=== PATIENT | female | born 1985 | race Caucasian/White ===

== ENCOUNTER 2017-07-31 16:55 | Emergency (ER) | payer BC ==
[~2017-07-31] VITALS: Ht 165.1 cm; Wt 74.8 kg
--- NOTE | 2017-07-31 17:11 | Emergency Room Report ---
History of Present Illness General Chief Complaint: Abdominal Pain Source: Patient Present Illness HPI 32-year-old female with no sig pmhx p/w epigastric abd pain for one hour. Patient states pain started suddenly as she was driving, localized to epigastric area, radiating towards back, burning in nature, intermittent. No relieving or exacerbating factors. Patient states that upon arrival to the emergency room it spontaneously improved without anything. Patient has never had this pain before Denies nvd. Denies fever, chills. No hx of abdominal surgeries. No hx of endoscopies/colonoscopies. Allergies: Coded Allergies: No Known Allergies (Unverified , 07/31/17) Patient History Past Medical History: see triage record Past Surgical History: none Pertinent Family History: none Now: No Reviewed Nursing Documentation: PMH: Agreed; PSxH: Agreed Nursing Documentation-PMH Past Medical History: No Stated History Review of Systems All Other Systems: negative except mentioned in HPI Physical Exam Vital Signs Date Time Temp Pulse Resp B/P (MAP) Pulse Ox O2 Delivery O2 Flow Rate FiO2 07/31/17 16:56 98.0 78 16 135/81 98 Room Air 98.1 Sp02 EP Interpretation: reviewed, normal General Appearance: alert, GCS 15, non-toxic, mild distress Head: normocephalic, atraumatic Eyes: bilateral eye normal inspection, bilateral eye PERRL, bilateral eye EOMI ENT: normal ENT inspection, normal pharynx, normal voice, moist mucus membranes Neck: normal inspection, full range of motion, supple Respiratory: normal inspection, lungs clear, normal breath sounds, no respiratory distress, no retraction, no wheezing, speaking full sentences, chest symmetrical Cardiovascular #1: normal inspection, regular rate, rhythm, normal capillary refill Cardiovascular #2: 2+ radial (R), 2+ radial (L) Gastrointestinal: soft, non-distended, no guarding, other - mild epigastric tenderness, murphys neg Genitourinary: no CVA tenderness Musculoskeletal: normal inspection, back normal, normal range of motion, non- tender Neurologic: normal inspection, alert, oriented x3, responsive, motor strength/ tone normal, sensory intact, normal gait, speech normal Psychiatric: normal inspection, judgement/insight normal, memory normal Skin: normal inspection, normal color, no rash, warm/dry, well hydrated, normal turgor Medical Decision Making Diagnostic Impression: Primary Impression: Abdominal pain Additional Impressions: Cholelithiasis Biliary colic ER Course 32-year-old female with epigastric abdominal pain which has gradually resolved upon coming to the emergency room Differential Diagnosis: Gastritis, gastroenteritis, pancreatitis, cholecystitis, appendicitis, UTI/pyelo Plan: Basic labs, ua IVF Ultrasound ER course: Patient has remained stable during ED stay. Pain improved. Repeat abdominal exam is nontender. Tolerating PO Patient has not required any pain medicine the emergency room, has been ambulatory Ultrasound showing multiple gallstones, no signs of cholecystitis labs are unremarkable Disposition: Patient is to be discharged to home. FU surgery outpatient Strict return precautions discussed with patient such as fever, chills, worsening/severe abdominal pain, nausea, vomiting, which may indicate severe illness. Patient verbalizes understanding and agrees with plan. Please note that this Emergency Department Report was dictated using [employer] machine operator technology software, occasionally this can lead to erroneous entry secondary to interpretation by the dictation equipment Laboratory Tests Test 07/31/17 17:10 White Blood Count 8.8 K/UL (4.8-10.8) Red Blood Count 3.79 M/UL (4.20-5.40) L Hemoglobin 12.0 G/DL (12.0-16.0) Hematocrit 35.8 % (37.0-47.0) L Mean Corpuscular Volume 95 FL (80-99) Mean Corpuscular Hemoglobin 31.7 PG (27.0-31.0) H Mean Corpuscular Hemoglobin Concent 33.6 G/DL (32.0-36.0) Red Cell Distribution Width 12.1 % (11.6-14.8) Platelet Count 257 K/UL (150-450) Mean Platelet Volume 7.6 FL (6.5-10.1) Neutrophils (%) (Auto) 68.5 % (45.0-75.0) Lymphocytes (%) (Auto) 22.2 % (20.0-45.0) Monocytes (%) (Auto) 7.3 % (1.0-10.0) Eosinophils (%) (Auto) 1.3 % (0.0-3.0) Basophils (%) (Auto) 0.8 % (0.0-2.0) Urine Color Yellow Urine Appearance Clear Urine pH 6 (4.5-8.0) Urine Specific [place] 1.025 (1.005-1.035) Urine Protein 1+ (NEGATIVE) H Urine Glucose (UA) Negative (NEGATIVE) Urine Ketones 2+ (NEGATIVE) H Urine Occult Blood Negative (NEGATIVE) Urine Nitrite Negative (NEGATIVE) Urine Bilirubin Negative (NEGATIVE) Urine Urobilinogen 1 MG/DL (0.0-1.0) H Urine Leukocyte Esterase 3+ (NEGATIVE) H Urine RBC 2-4 /HPF (0 - 2) H Urine WBC 5-10 /HPF (0 - 2) H Urine Squamous Epithelial Cells Few /LPF (NONE/OCC) Urine Amorphous Sediment Few /LPF (NONE) H Urine Bacteria Few /HPF (NONE) Urine HCG, Qualitative Negative (NEGATIVE) Sodium Level 140 MMOL/L (136-145) Potassium Level 3.6 MMOL/L (3.5-5.1) Chloride Level 103 MMOL/L (98-107) Carbon Dioxide Level 27 MMOL/L (21-32) Anion Gap 10 mmol/L (5-15) Blood Urea Nitrogen 19 mg/dL (7-18) H Creatinine 0.7 MG/DL (0.55-1.30) Estimate Glomerular Filtration Rate > 60 mL/min (>60) Glucose Level 101 MG/DL (74-106) Calcium Level 9.5 MG/DL (8.5-10.1) Total Bilirubin 0.6 MG/DL (0.2-1.0) Aspartate Amino Transferase (AST) 126 U/L (15-37) H Alanine Aminotransferase (ALT) 77 U/L (12-78) Alkaline Phosphatase 141 U/L (46-116) H Total Protein 8.2 G/DL (6.4-8.2) Albumin 4.4 G/DL (3.4-5.0) Globulin 3.8 g/dL Albumin/Globulin Ratio 1.2 (1.0-2.7) Lipase 119 U/L (73-393) CT/MRI/US Diagnostic Results CT/MRI/US Diagnostic Results : Imaging Test Ordered: US abdominal Impression per tech, gallstones, no wall thickening, no pericholecystic fluid, murphys sign neg Last Vital Signs Date Time Temp Pulse Resp B/P (MAP) Pulse Ox O2 Delivery O2 Flow Rate FiO2 07/31/17 16:57 97.9 79 20 135/81 99 Room Air 97.9 Disposition: HOME, SELF-CARE Condition: Improved Mathew Burk M.D. Jul 31, 2017 17:11
[2017-07-31 17:28] LABS: APPEARANCE,URINE CLEAR; BILIRUBIN, URINE NEGATIVE (NEGATIVE); GLUCOSE, URINE (UA) NEGATIVE (NEGATIVE); KETONES,URINE 2+ (NEGATIVE); LEUKOCYTE ESTERASE ,URINE 3+ (NEGATIVE); NITRITE,URINE NEGATIVE (NEGATIVE); PH,URINE 6 (4.5-8.0); PROTEIN,URINE 1+ (NEGATIVE); UROBILINOGEN,URINE 1 MG/DL (0.0-1.0)
[2017-07-31 17:31] LABS: COLOR,URINE YELLOW
[2017-07-31 17:34] LABS: ANION GAP 10 mmol/L (5-15); BASOPHILS % (AUTO) 0.8 % (0.0-2.0); BLOOD UREA NITROGEN 19 mg/dL (7-18); CALCIUM 9.5 MG/DL (8.5-10.1); CARBON DIOXIDE 27 MMOL/L (21-32); CHLORIDE 103 MMOL/L (98-107); CREATININE 0.7 MG/DL (0.55-1.30); EOSINOPHILS % (AUTO) 1.3 % (0.0-3.0); HEMATOCRIT 35.8 % (37.0-47.0); LYMPHOCYTES % (AUTO) 22.2 % (20.0-45.0); MEAN CORPUSCULAR VOLUME 95 FL (80-99); MONOCYTES % (AUTO) 7.3 % (1.0-10.0); NEUTROPHILS % (AUTO) 68.5 % (45.0-75.0); PLATELET COUNT 257 K/UL (150-450); POTASSIUM 3.6 MMOL/L (3.5-5.1); RED BLOOD COUNT 3.79 M/UL (4.20-5.40); RED CELL DISTRIBUTION WIDTH 12.1 % (11.6-14.8); SODIUM 140 MMOL/L (136-145); WHITE BLOOD COUNT 8.8 K/UL (4.8-10.8)
[2017-07-31 17:38] LABS: ALANINE AMINOTRANSFERASE 77 U/L (12-78); ALBUMIN 4.4 G/DL (3.4-5.0); ALBUMIN/GLOBULIN RATIO 1.2 (1.0-2.7); ALKALINE PHOSPHATASE 141 U/L (46-116); ASPARTATE AMINO TRANSFERASE 126 U/L (15-37); BILIRUBIN,TOTAL 0.6 MG/DL (0.2-1.0)
[2017-07-31 18:00] VITALS: BP 135/81
[2017-07-31 18:56] VITALS: BP 121/65
--- NOTE | 2017-08-01 14:45 | Diagnostic Imaging Report ---
Indication: Abdominal pain Technique: Eastman-scale and duplex images of the upper abdomen were obtained Comparison: none Findings: Gallbladder demonstrates multiple gallstones. Gallbladder wall thickness is upper limits of normal. Gallbladder is incompletely distended. No pericholecystic fluid Sonographic Negron's sign is negative. Common bile duct measures for mm in diameter. No intrahepatic biliary ductal dilatation. Liver demonstrates normal echogenicity, no focal abnormality. Portal vein and hepatic veins are patent. Pancreas is unremarkable. Spleen is unremarkable. Left kidney measures 10 cm in length. Right kidney measures 11 cm length. Both kidneys demonstrate normal echogenicity. There is no hydronephrosis. No focal abnormality . Non-aneurysmal abdominal aorta . Impression: Cholelithiasis. Negative for dilated ducts No other acute or significant findings
== END 2017-07-31 19:00 | disposition home or self-care (01) ==
LOC: EDBD 16:55 → EMR 17:10
DX: K80.70 Calculus of gallbladder and bile duct without cholecystitis without obstruction (principal); R10.13 Epigastric pain
CPT/HCPCS: 36415; 76700; 76770; 80053; 81003; 81025; 83690; 85025; 99284